=== PATIENT | female | born 1985 | race Caucasian/White ===

== ENCOUNTER 2019-08-16 07:33 | Emergency (ER) | payer MEDICAID ==
[~2019-08-16] VITALS: Ht 154.9 cm; Wt 92.5 kg
[~2019-08-16 07:33] MED LIST: CALC500T38 PO; FERR325E14 PO; FOLI1TAB19 PO; PREN-385 PO
[2019-08-16 07:44] VITALS: BP 148/84
--- NOTE | 2019-08-16 07:52 | NUR ---
33/F BIB DAUGHTER C/O LOWER BACK PAIN RADIATING TO LEFT LEG, HARD TO WALK X2 MONTH. DENIES INJURY OR DYSURIA, NO MED HX. PATIENT STATES PAIN OF 9/10 AT THIS TIME;PATIENT POSITIONED FOR COMFORT; HOB ELEVATED; BEDRAILS UP X1; BED DOWN. ER MD MADE AWARE OF PT STATUS.
--- NOTE | 2019-08-16 08:01 | NUR ---
Patient being evaluated by DR FULLER at bedside.
[2019-08-16] MEDS ORDERED: IBUPROFEN 800 MG TAB PO ONE (08:05)
[2019-08-16 08:20] VITALS: BP 148/84
== END 2019-08-16 08:20 | disposition home or self-care (01) ==
LOC: MED 07:33
DX: S39.012A Strain of muscle, fascia and tendon of lower back, initial encounter (principal); Z79.899 Other long term (current) drug therapy; X58.XXXA Exposure to other specified factors, initial encounter; Y93.89 Activity, other specified; Y92.89 Other specified places as the place of occurrence of the external cause; Y99.8 Other external cause status
CPT/HCPCS: 81002; 81025; 99282

== ENCOUNTER 2022-06-08 13:57 | Emergency (ER) | payer MEDICAID ==
[~2022-06-08] VITALS: Ht 162.6 cm; Wt 85.3 kg
[2022-06-08 14:07] VITALS: BP 151/91
--- NOTE | 2022-06-08 14:40 | NUR ---
36/F PRESENTS TO ED WITH C/O LOWER BACK PAIN SINCE WEDNESDAY MORNING. PATIENT DENIES RECENT INJURY OR TRAUMA, STATES SHE WOKE UP WITH THE PAIN AND REPORTS PAIN WORSENED ON WEDNESDAY. PATIENT STATES SHE HAS TAKEN TYLENOL WITH NO RELIEF, DENIES N/V/D OR URINARY SYMPTOMS.
[2022-06-08] MEDS ORDERED: HYDROcodone/APAP 5/325 MG 1 TAB TAB PO ONE (15:20)
[2022-06-08] MEDS ORDERED: KETOROLAC 30 MG/ML VIAL IM ONE (15:20)
--- NOTE | 2022-06-08 15:58 | NUR ---
[facility]
[2022-06-08] MEDS ORDERED: NAPR-54 PO (16:39)
[2022-06-08] MEDS ORDERED: CYCL-711 PO (16:39)
[2022-06-08 16:54] VITALS: BP 133/84
--- NOTE | 2022-06-08 16:54 | NUR ---
Patient discharged with v/s stable. Written and verbal after care instructions given. Patient alert, oriented and verbalized understanding of instructions. Ambulatory with steady gait. All questions addressed prior to discharge. ID band removed. Patient advised to follow up with PMD. Rx of Flexeril and Naproxen given. Opportunity to ask questions provided and answered.
== END 2022-06-08 16:54 | disposition home or self-care (01) ==
LOC: MED 13:57
DX: M54.50 Low back pain, unspecified (principal); Z79.899 Other long term (current) drug therapy
CPT/HCPCS: 72100; 81002; 81025; 96372; 99283; J1885

== ENCOUNTER 2023-09-19 17:51 | Emergency (ER) | payer MEDICAID ==
[~2023-09-19] VITALS: Ht 157.5 cm; Wt 87.1 kg
[~2023-09-19 17:51] MED LIST changes: +CYCL-711 PO; +NAPR-54 PO
[2023-09-19 18:01] VITALS: BP 141/92; PULSE 95; RESP 18; TEMP 99.2; O2SAT 97
[2023-09-19 18:38] LABS: FLU A ANTIGEN negative (NEGATIVE); FLU B ANTIGEN negative (NEGATIVE)
[2023-09-19] MEDS ORDERED: IBUP-2213 PO (19:22)
[2023-09-19] MEDS ORDERED: BENZ-300 PO (19:22)
[2023-09-19] MEDS ORDERED: PROM118S5 PO (19:39)
[2023-09-19] MEDS ORDERED: CETI-24 PO (19:39)
== END 2023-09-19 20:27 | disposition home or self-care (01) ==
LOC: MED 17:51
DX: J06.9 Acute upper respiratory infection, unspecified (principal); Z20.822 Contact with and (suspected) exposure to COVID-19; Z79.899 Other long term (current) drug therapy
CPT/HCPCS: 71045; 87426; 87804; 93005; 99285; Q0092

== ENCOUNTER 2024-05-16 15:24 | Emergency (ER) | payer MEDICAID, OTHER ==
[~2024-05-16] VITALS: Ht 160 cm; Wt 81.6 kg
[~2024-05-16 15:24] MED LIST changes: +BENZ-300 PO; +CETI-24 PO; +IBUP-2213 PO; +NAPR-337 PO; -NAPR-54 PO; +PROM118S5 PO
[2024-05-16 15:49] VITALS: BP 144/94; PULSE 82; RESP 24; TEMP 97.9; O2SAT 99
[2024-05-16] MEDS ORDERED: NAPR-1704 PO (16:44)
[2024-05-16] MEDS: KETOROLAC 30 MG/ML VIAL IM ONE (16:57)
[2024-05-16 17:05] VITALS: BP 144/94; PULSE 82; RESP 24; TEMP 97.9; O2SAT 99
== END 2024-05-16 17:05 | disposition home or self-care (01) ==
LOC: MED 15:24
DX: S39.012A Strain of muscle, fascia and tendon of lower back, initial encounter (principal); Z79.1 Long term (current) use of non-steroidal anti-inflammatories (NSAID); Z79.899 Other long term (current) drug therapy; X50.1XXA Overexertion from prolonged static or awkward postures, initial encounter; Y93.89 Activity, other specified; Y92.89 Other specified places as the place of occurrence of the external cause; Y99.8 Other external cause status
CPT/HCPCS: 81002; 81025; 96372; 99283; J1885